=== PATIENT | male | born 1940 | race Caucasian/White ===

== ENCOUNTER 2017-10-31 01:45 | Day surgery (SDC) | payer MEDICARE ==
[~2017-10-31] VITALS: Ht 175.3 cm; Wt 83.5 kg
[~2017-10-31 01:45] MED LIST: ASPI-715 PO; ATOR10TA65 PO; ATOR20TA22 PO; ATOR20TA65 PO; CALC-797 PO; FLAX100041 PO; IBU200 PO; LISI-346 PO; LISI20TA29 PO; MULT-1335 PO; OMEP-218 PO; OMEP10CA40 PO; SAW1CAPS2 PO
[2017-10-31] MEDS ORDERED: PROPOFOL EMUL(*) 10MG/ML 20 ML 20 ML ONE ×2 (07:25→09:00)
[2017-10-31 07:30] VITALS: BP 132/75
[2017-10-31] MEDS ORDERED: NORMOSOL R SOLN(*) 1000 ML BAG 1,000 ML IV PRN (07:55)
[2017-10-31] MEDS ORDERED: LIDOCAINE/SOD BICARB 8.4% SYR ID ONE (07:55)
[2017-10-31 09:17] VITALS: BP 90/66
[2017-10-31 09:38] VITALS: BP 108/60
[2017-10-31 09:42] VITALS: BP 106/63
== END 2017-10-31 09:50 | disposition home or self-care (01) ==
LOC: OR 01:45
PROVIDERS: ATTEND Family Medicine
DX: Z12.11 Encounter for screening for malignant neoplasm of colon (principal); Z80.0 Family history of malignant neoplasm of digestive organs; K57.30 Diverticulosis of large intestine without perforation or abscess without bleeding
CPT/HCPCS: 00812; G0121; J2704

== ENCOUNTER → 2018-03-11 | Outpatient (REF) | payer MEDICARE | LOC: ZZSENDIN 17:17 | PROVIDERS: ATTEND Urology | DX: R31.1 Benign essential microscopic hematuria (principal) | CPT/HCPCS: 81001; 87088 ==

== ENCOUNTER → 2018-11-13 | Outpatient (REF) | payer MEDICARE ==
[~2018-11-13] MED LIST changes: -OMEP10CA40 PO; +OMEP10CA41 PO
[2018-11-13 14:40] LABS: INR 0.99
== END ==
LOC: ZZSENDIN 09:34
PROVIDERS: ATTEND Physician Assistant
DX: Z01.818 Encounter for other preprocedural examination (principal); Z01.812 Encounter for preprocedural laboratory examination; R79.1 Abnormal coagulation profile
CPT/HCPCS: 81001; 85610; 85730

== ENCOUNTER → 2018-11-21 | Outpatient (CLI) | payer MEDICARE ==
[~2018-11-21] MED LIST changes: +CALC-1046; +CALC500T6 PO; +MONT10TA PO; +OMEG-11 PO; +PANT40TA65 PO; +SIMV-49 PO; +TADA5TAB7 PO; +TAMS0.4C25 PO
== END ==
LOC: US 02:21
PROVIDERS: ATTEND Physician Assistant
DX: I35.1 Nonrheumatic aortic (valve) insufficiency (principal); I36.1 Nonrheumatic tricuspid (valve) insufficiency
CPT/HCPCS: 93306